=== PATIENT | female | born 1955 | race Caucasian/White ===

== ENCOUNTER 2023-03-27 10:30 | Outpatient (REF) | payer MEDICARE, BC, SELFPAY ==
[2023-03-27 12:54] LABS: Mononuclear WBC Body Fluid* 83 %; Polynuclear WBC Body Fluid* 17 %; RBC, Body Fluid* 2000 Cells/uL; WBC, Body Fluid* 345 Cells/uL
[2023-03-27 12:57] LABS: BF Color Xanthochromic; BF Total Volume* 10
[2023-03-27 12:58] LABS: BF Clarity* Slightly Cloudy
== END 2023-03-27 10:31 | disposition home or self-care (01) ==
LOC: NPINS 10:30
PROVIDERS: PCP Family Medicine; Visit Provider Orthopaedic Surgery Sports Medicine
DX: M25.462 Effusion, left knee (principal)
CPT/HCPCS: 87070; 87075; 87205; 89051; 89060

== ENCOUNTER 2024-10-24 22:32 | Emergency (ER) | payer MEDICARE, BC, SELFPAY ==
--- OUTSIDE RECORDS SUMMARY | 2024-10-24 22:34 | XMS_ITS | Clinical Summary ---
Author Organization [employer] [facility] Address [address] [place] [address] Care Team Providers Care Catering Chef Name Role Phone Yuli Tahira Odell DO Primary Care Provider [phone] Allergies Active Allergy Reactions Criticality Noted Date Comments Amlodipine Anxiety 03/31/2019 Latex 03/14/2005 AVOIDS DUE TO SPINAL BIFIDA Ampicillin-Sulbactam Rash 10/04/2015 Medications MEDICATION ORDER jerri Patel is 742.59 2 0 10/18/19 08 Active vitamin B complex (VITAMIN B COMPLEX) tablet Take 1 tablet by mouth once daily. 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 Please send to [facility] 1 Each 09/26/19 19 Active cholecalcifero l (VITAMIN D) 1,000 unit tablet Take 4-6 tablets by mouth once daily. 0 05/20/19 21 Active vit A/vit C/vit E/zinc/copper (PRESERVISION AREDS ORAL) Take by mouth. Act monalisa medication order composerIndica tions:History of spina bifida Incentive Spirometer for home use. 1 Each 08/02/19 25 Active chlorthalidone 25 mg tabletIndicati ons:Hypertensi on, unspecified type Take 1 Tablet (25 mg) by mouth once daily. 90 Tablet 3 08/02/19 25 Active cyanocobalamin (Vitamin B-12) 1,000 mcg tabletIndicati ons:Vitamin B12 deficiency Take 1 Tablet (1,000 mcg) by mouth once daily. 90 Tablet 3 08/02/19 25 Active losartan 50 mg tabletIndicati ons:Hypertensi on, unspecified type Take 1 Tablet (50 mg) by mouth once daily. 90 Tablet 3 08/02/19 25 Active metoprolol succinate 50 mg sustained-rele ase tabletIndicati ons:Hypertensi on, unspecified type,SVT (supraventricu lar tachycardia) (HC) Take 1 Tablet (50 mg) by mouth once daily. 90 Tablet 3 08/02/19 25 Active clonazePAM 0.5 mg tabletIndicati ons:Congenital anomaly of spinal cord (HC) TAKE 1 TABLET BY MOUTH AT BEDTIME. MAY OCCASIONALLY TAKE 1 EXTRA TABLET PER DAY IF NEEDED. SHOULD LAST 90 DAYS MINIMUM. 100 Tablet 2 10/10/19 25 Active clonazePAM (KLONOPIN) 0.5 mg tabletIndicati ons:Congenital anomaly of spinal cord (HC) TAKE 1 TABLET BY MOUTH AT BEDTIME. MAY OCCASIONALLY TAKE 1 EXTRA TABLET PER DAY IF NEEDED. SHOULD LAST 90 DAYS MINIMUM. 100 Tablet 07/04/19 25 025 Discontinued Active Problems Problem Noted Date Diagnosed Date History of breast cancer 09/28/2021 Supraventricular tachycardia 10/04/2015 Overview (10/04/2015): Admitted [facility] 09/2015. See d/c summary. 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 Disturbance of skin sensation 03/14/2005 Resolved Problems Problem Noted Date Diagnosed Date Resolved Date Other and Unspecified Ovarian Cyst 11/22/2007 01/05/2012 Overview (01/26/2009): Left Ovarian cyst [facility] Malignant neoplasm of 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 09/28/2021 Overview (11/22/2007): right breast cancer, 2003, Encounters Date Type Department Care Team Description 10/09/2024 Refill [facility] [address] [place] [address] Tahira Roldan DO Refill Request (Clonazepam) 09/24/2024 1:30 PM CDT Orders Only [facility] [place] [address] Lab, [place] [facility] 09/24/2024 Travel 08/04/2024 Telephone [facility] [address] [place] [address] Tahira Roldan DO Referral (DX review) 08/01/2024 2:20 PM CDT Office Visit [facility] [place] [address] Tahira Roldan DO Medicare ANNUAL (subsequent) Visit (68 year old medicare) 08/01/2024 Travel from Last 3 Months Immunizations Immunization Administration Dates Next Due COVID-19 vaccine (Moderna 100mcg/0.5mL) ANJELICA PARR 03/29/2021,06/13/2020,05/16/2020 Influenza A (H1N1), Inactivated 04/07/2009 Influenza A (H1N1), Inactiva jenny (Age >=3 Years) 04/07/2009 Influenza, IIV3 (Age >=3 years) 01/05/20 12,05/09/2010,03/27/2006,2003 Td (Age >=7 Years) 11/06/2003 Td, Preservative Free (age > = 7 Years) 08/15/2022 Tdap 01/05/2012 Family History Medical History Relation Name Comments Heart Disease Father Cancer-breast Other pat first cous in 60's yrs old Cancer-colon Other maternal great grandmother Cancer-ovarian Paternal Grandmother 80's yrs old Cancer No Family History Cancer-prostate No Family History Relation Name Status Comments Father Alive Other Paternal Grandmother Social History Tobacco Use Types Packs/Day Years Used Date Smoking Tobacco: Never Smokeless Tobacco: Never Tobacco Cessation:Counseling Given: Yes Alcohol Use Standard Drinks/Week Comments Yes 5 (1 standard drink = 0.6 oz pur e alcohol) PHQ-2 Answer Date Recorded PHQ-2 TOTAL SCORE 0 08/01/2024 Social Connections Answer Date Recorded Do you often feel lonely or isolated from those around you? 0 08/01/2024 Alcohol Use Answer Date Recorded How often do you have a drink containing alcohol ? 4 08/15/2023 How many drinks containing a lcohol do you have on a typical day when you are drinking? 0 08/15/2023 How often do you have five or more drinks on one occasion? 0 08/15/2023 Financial Resource Strain Answer Date R ecorded Difficulty of Paying Living Expenses 3 08/01/2024 Difficulty of Paying Living Expenses Not on file 08/01/2024 Food Insecurity Answer Date Recorded Do you worry your food will run out before you are able to buy more? 1 08/01/2024 Transportation Needs Answer Date Record ed Does lack of transportation keep you from medica l appointments? 1 08/01/2024 Does lack of transportation keep you from work, meetings or getting things that you need? 1 08/01/2024 Housing Stability Answer Date Recorded What is your housing situation today? 1 08/01/2024 Utilities Answer Date Recorded Do you have trouble paying f or utilities (for example, heat, electricity, water, phone)? 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 Not on file Not on file Obstetrics History Para Term AB IAB SAB Ectopic Multiple Livin g Live Births 0 0 0 0 0 0 0 0 0 0 Last Filed Vital Signs Vital Sign Reading Time Taken Comments Blood Pressure 138/78 08/01/2024 2:27 PM CDT Pulse 77 08/01/2024 2:27 PM CDT Temperature 36.3 C (97.4 F) 04/12/2023 3:07 PM BENCH PRESS OPERATOR Respiratory Rate 18 10/19/2021 2:02 PM CDT Oxygen Saturation 96% 08/01/2024 2:27 PM CDT Inhaled Oxygen Concentration - - Weight 59.4 kg (131 lb) 08/01/2024 2:27 PM CDT Height 147 cm (4' 9.87) 12/15/2016 1:46 PM CDT Body Mass Index 27.5 12/15/2016 1:46 PM CDT Plan of Treatment Upcoming Encounters Date Type Department Care Team (Late st Contact Info) Description 11/11/2024 10:45 AM CDT Office Visit [facility] [address] [place] [address] Gerald Otero MD [address] [place] [address] Health Maintenance Due Date Last Done Comments Pneumococcal series for age 50+ (1 of 2 - PCV) 1976 Zoster (shingles) series for age 50+ (1 of 2) 09/16/2007 Mammogram for age 45-75 04/08/2021 04/08/20 20, 10/01/2014, 10/01/2012, Additional history exists DEXA/DXA scan for age 65+ 2022 11/14/2013, 12/2008 COVID-19 vaccine series ( season) 2023 02/24/2022, 03/29/2021, 06/13/2020, Additional history exists Influenza Vaccine (#1) 2024 2, 05/09/2010, 03/27/2006, Additional history exists Medicare Wellness for age 65+ 08/02/2025 08/01/2024, 03/01/2023 Depression screening for age 12+ 08/04/2025 08/04/2024, 08/01/2024, 03/01/2023, Additional history exists Lipids for age 45-75 09/24/2029 09/24/2024, 03/01/2023, 10/17/2021, Additional history exists Tetanus booster 08/15/2032 08/15/2022, 12/22, 09/26/2010 (Completed outside of [facility]), Additional history exists RSV vaccine for adults or (1 - 1-dose 75+ series) 2032 Hepatitis C screening for age 18-79 Completed 11/14/2013 Hepatitis B series for 19+ Aged Out N o longer eligible based on patient's age to complete this topic Procedures Procedure Name Priority Date/Time Associated Diagnosis Comments BASIC METABOLIC PANEL Routine 09/24/2024 1:35 PM CDT Neurogenic bladder HTN (hypertension) HEMOGLOBIN A1C Routine 09/24/2024 1:35 PM CDT Elevated glucose LIPID PANEL W REFLEX MEASURED LDL Routine 09/24/2024 1:35 PM CDT Hyperlipidemia, unspecified hyperlipidemia type VITAMIN B12 Routine 09/24/2024 1:35 PM CDT Vitamin B12 deficiency VITAMIN D 25 (DEFICIENCY) Routine 09/24/2024 1:35 PM CDT Vitamin D deficiency XR MAMMO JAMIN BILAT SCREEN Routine 04/08/2020 11:30 AM BENCH PRESS OPERATOR Visit for screening mammogram XR DXA BONE DENSITY 1 SITE AXIAL AND 1 SITE PERIPHERAL Routine 11/14/2013 12:47 PM CDT Osteoporosis ANTI HCV Routine 11/14/2013 10:36 AM CDT Need for hepatitis C screening test from Last 3 Months or Most Recently Relevant to Health Maintenance Results * (ABNORMAL) HEMOGLOBIN A1C (09/24/2024 1:35 PM CDT) HEMOGLOBIN A1C 5.7(H) <5.7 % [facility] Comment: For someone without known diabetes, a hemoglobin A1c value between 5.7% and 6.4% is consistent with prediabetes and should be confirmed with a follow-up test. For someone with known diabetes, a value <7% indicates that their diabetes is well controlled. A1c targets should be individualized based on duration of diabetes, age, comorbid conditions, and other considerations. This assay result is consistent with an increased risk of diabetes. Currently, no consensus exists regarding use of hemoglobin A1c for diagnosis of diabetes for children. Blood BLOOD SPECIMEN / Unknown 09/24/2024 1:35 PM CDT 09/24/2024 1:36 PM CDT Tahira Roldan DO CHEMISTRY Final Resu lt [employer] [facility] [address] [place] [address], [facility] [address] [place] [address] * (ABNORMAL) LIPID PANEL W REFLEX MEASURED LDL (09/24/2024 1:35 PM CDT) [facility] CHOLESTEROL, TOTAL 226(H) <200 mg/dL [facility] HDL CHOLESTEROL 71 > OR = 50 mg/dL [facility] TRIGLYCERIDES 134 <150 mg/dL [facility] LDL-CHOLESTEROL 130(H) mg/dL (calc) [facility] Comment: Reference range: <100 Desirable range <100 mg/dL for primary prevention; <70 mg/dL for patients with CHD or diabetic patients with > or = 2 CHD risk factors. LDL-C is now calculated using the Shahram-Bart calculation, which is a validated novel method providing better accuracy than the Friedewald equation in the estimation of LDL-C. Shahram TOMLINSON et al. CHINO. 2013;310(19): 3997-5502 (http://education.[employer]/faq/UER496) CHOL/HDLC RATIO 3.2 <5.0 (calc) [facility] NON HDL CHOLESTEROL 155(H) <130 mg/dL (calc) [facility] Comment: For patients with diabetes plus 1 major ASCVD risk factor, treating to a non-HDL-C goal of <100 mg/dL (LDL-C of <70 mg/dL) is considered a therapeutic option. Blood BLOOD SPECIMEN / Unknown 09/24/2024 1:35 PM CDT 09/24/2024 1:36 PM CDT Tahira Roldan DO CHEMISTRY Final Resu lt Performing Organization Address [facility]/ZIP Co de Phone Number [facility] [employer] [facility] [address] [place] [address], [facility] [address] [facility] [place] [place] [address] * VITAMIN D 25 (DEFICIENCY) (09/24/2024 1:35 PM CDT) Pathologist [facility] VITAMIN D,25-OH,TOTAL,IA 36 30 - 100 ng/mL [facility] Comment: Vitamin D Status 25-OH Vitamin D: Deficiency: <20 ng/mL Insufficiency: 20 - 29 ng/mL Optimal: > or = 30 ng/mL For 25-OH Vitamin D testing on patients on D2-supplementation and patients for whom quantitation of D2 and D3 fractions is required, the Quest[facility]ure[facility](TM) 25-OH VIT D, (D2,D3), LC/MS/MS is recommended: order code 23869 (patients >2yrs). See Note 1 Note 1 For additional information, please refer to http://education.AudioBeta/faq/ZNM134 (This link is being provided for informational/ educational purposes only.) Blood BLOOD SPECIMEN / Unknown 09/24/2024 1:35 PM CDT 09/24/2024 1:36 PM CDT Tahira Roldan DO SEND OUTS Final Resu lt Performing Organization Address City/[facility]/ZIP Co de Phone Number [facility] [employer] [facility] [address] [place] [address], [place] [phone] [facility] [address] [facility] [place] [place] [address] * VITAMIN B12 (09/24/2024 1:35 PM CDT) Pathologist [facility] VITAMIN B12 444 200 - 1,100 pg/mL [facility] Blood BLOOD SPECIMEN / Unknown 09/24/2024 1:35 PM CDT 09/24/2024 1:36 PM CDT Tahira Roldan DO CHEMISTRY Final Resu lt [facility] [employer] [facility] [address] [place] [address], [facility] [address] [place] [address] * (ABNORMAL) BASIC METABOLIC PANEL (09/24/2024 1:35 PM CDT) Pathologist [facility] GLUCOSE 110(H) 65 - 99 mg/dL [facility] Comment: Fasting reference interval For someone without known diabetes, a glucose value between 100 and 125 mg/dL is consistent with prediabetes and should be confirmed with a follow-up test. UREA NITROGEN (BUN) 15 7 - 25 mg/dL [facility] CREATININE 0.51 0.50 - 1.05 mg/dL [facility] EGFR 102 > OR = 60 mL/min/1. 73m2 [facility] BUN/CREATININE RATIO SEE NOTE: 6 - 22 (calc) [facility] Comment: Not Reported: BUN and Creatinine are within reference range. SODIUM 139 135 - 146 mmol/L [facility] POTASSIUM 3.5 3.5 - 5.3 mmol/L [facility] CHLORIDE 100 98 - 110 mmol/L [facility] CARBON DIOXIDE 27 20 - 32 mmol/L [facility] ELECTROLYTE BALANCE 12 7 - 17 mmol/L (calc) [facility] CALCIUM 9.8 8.6 - 10.4 mg/dL [facility] Blood BLOOD SPECIMEN / Unknown 09/24/2024 1:35 PM CDT 09/24/2024 1:36 PM CDT Tahira Roldan DO CHEMISTRY Final Resu lt [facility] [address] [place] [address], [place] [phone] [facility] [address] [place] [address] * XR MAMMO JAMIN BILAT SCREEN (04/08/2020 11:30 AM BENCH PRESS OPERATOR) Anatomical Region Laterality Modality BREASTS, Breast Left, Breast Right Bilateral Mammography Impressions 04/08/2020 2:32 PM BENCH PRESS OPERATOR There is no radiographic evidence for malignancy. Recommend annual mammograms. A lay language report of this examination will be provided to the patient. MAMMOGRAM ASSESSMENT: ACR 2 Benign Narrative 04/08/2020 2:32 PM BENCH PRESS OPERATOR XR MAMMO JAMIN BILAT SCREEN [[id number]] CLINICAL HISTORY: This is an asymptomatic 64 y.o. patient. INDICATION FOR EXAM: Mammogram Screening. TECHNIQUE: CC & MLO views were obtained. This digital study was evaluated with the assistance of Computer-Aided Detection. Breast Tomosynthesis was used in interpretation. COMPARISON FILMS: Yes 10/01/14 [facility] FINDINGS: The breasts are extremely dense, which lowers the sensitivity of mammography. No suspicious masses or microcalcifications. Benign appearing calcifications within both breasts, Post surgical changes within right breast and Post treatment changes within right breast. Tahira Roldan MAMMO Final Resu lt * (ABNORMAL) XR DXA BONE DENSITY 1 SITE AXIAL AND 1 SITE PERIPHERAL (11/14/2013 12:47 PM CDT) Anatomical Region Laterality Modality LUMBAR SPINE Other Narrative 11/14/2013 4:55 PM CDT Please see scanned document for results of this study. Procedure Note Urmila Lind E - 11/14/2013 Please see scanned document for results of this study. Roseanna Chang DEXA Final R esult * ANTI HCV [[id number]] (11/14/2013 10:36 AM CDT) HEPATITIS C ANTIBODY Non-Reacti ve Non-Reacti ve 11/14/2013 4:39 PM CDT [facility] Blood specimen (specimen) BLOOD SPECIMEN / Unknown Venipuncture / Unknown 11/14/2013 10:36 AM CDT 11/14/2013 10:36 AM CDT Narrative [facility] - 11/14/2013 4:39 PM CDT Antibodies to HCV not detected; does not exclude the possibility of exposure to HCV. Roseanna Chang SEND OUTS Final R esult [facility] [address] [place] [address], from Last 3 Months or Most Recently Relevant to Health Maintenance [place] [address] MEDICARE PB ONLY MEDICARE PART B HB ONLY Advance Directives Documents on File Type Date Recorded Patient Clip Loading Machine Feeder Expl anation Healthcare Directive 10/19/2010 * Full Code (Latest Code Status on File) Date Activated Date Inactivated Comments 10/07/2010 5:33 PM 10/17/2010 6:12 PM * Full Code Date Activated Date Inactivated Comments 10/07/2010 7:40 AM 10/07/2010 5:33 PM * Full Code Date Activated Date Inactivated Comments 10/06/2010 11:16 AM 10/07/2010 7:40 AM Care Teams Catering Chef Relationship Specialty Start Date End Date Tahira Roldan DO [address] [place] [address] PCP - General Family Practice 08/05/15
--- OUTSIDE RECORDS SUMMARY | 2024-10-24 22:34 | XMS_ITS | Data Portability ---
Author Organization [place] [facility] [place] [facility], [facility] Address [address] [place] [address] Assessment No assessment recorded. Plan of Treatment Reminders Order Date Submit Date Provider Last Modified By Organization Details Last Modified Time Details Appointments None recorded . Lab None recorded . Referral None recorded . Procedures None recorded . Surgeries None recorded . Imaging US, kidney 024 11/16/19 aceoneidao [facility], [address] , [place], [address], 10:52:46 Medication Orders None recorded . Patient TargetsNo targets recorded. Patient InstructionsNo instructions recorded. Reason for Referral None Reported. Results Created Date Observation Date Name Description Value Unit Range Abnormal Flag Note LastModifiedBy Organization Detail LastModifiedTime 11/08/19 24 11/07/2023 clotilde DELGADO No observ ation record ed. [place] Brea [facility] [address] , [place], [address], 11/12/2023 14:55:25 11/14/19 24 11/07/2023 clotilde DELGADO No observ ation record ed. [email or web address] [facility] [address], [place], [address], 11/14/2023 14:16:03 Result Notes None recorded. Procedures Surgical History Date Name Laterality Status Provider Name and Address Organization Details Recorded Time 10/08/19 11 Revise ureter completed Not Available [facility] 2019 17:31:32 07/27/19 11 Insert bladder catheter completed Not Available [facility] 10/02/2019 17:31:32 01/06/20 11 Insert bladder catheter completed Not Available [facility] 10/02/2019 17:31:32 10/29/19 10 Too venous bld venipuncture completed Not Available [facility] 10/02/2019 17:31:32 10/21/18 85 Remove kidney open completed Not Available [facility] 10/02/2019 17:31:32 Ileostomy/jejuno stomy completed Not Available [facility] 10/02/2019 17:31:32 Remove spine lamina 1/2 lmbr completed Not Available [facility] 10/02/2019 17:31:32 Remove bladder/revise tract completed Not Available [facility] 10/02/2019 17:31:32 Imaging Results None recorded. Procedure Notes None recorded. Medical Equipment None Reported. Allergies Allergen ID Allergen Name Allergen Category Reaction Reaction Severity Criticality Documentation Date Start Date Code Code System Note Provider Name and Address Organization Details Recorded Time 420169 latex environme nt,medica tion Not available Not available Not available 10/01/2019 87390 91 RxNorm preca ution s Not Available [facility] 0 23:58:49 445062 diphenhyd ramine hydrochlo ride medicatio n Not available Not available Not available 11/16/2023 1362 RxNorm Aleida odell [facility] 4 15:07:12 356099 lisinopri l medicatio n Not available Not available Not available 11/16/2023 13237 RxNorm Aleida odell [facility] 4 15:07:20 Medications Name Sig Start Date Stop Date Status Note LastModified by Organization Details LastModified Time vitamin b-12 1000 mcg tabs TAKE 1 TABLET (1,000 MCG) BY MOUTH ONCE DAILY. active Not Available Not Available No t Available losartan 50 mg tablet TAKE 1 TABLET (50 MG) BY MOUTH ONCE DAILY. active Not Available Not Available No t Available ofloxacin 0.3 % eye drops INSTILL 1 DROP IN SURGICAL EYE/S FOUR TIMES A DAY; START 2 DAYS PRIOR TO SURGERY AND CONTINUE DIRECTED 11/15 completed Not Available Not Available Not Available metoprolol succinate ER 50 mg tablet,exte nded release 24 hr TAKE 1 TABLET (50 MG) BY MOUTH ONCE DAILY. active Not Available Not Available No t Available clonazepam 0.5 mg tablet TAKE 1 TABLET (0.5 MG) BY MOUTH AT BEDTIME. AUGUST OCCASIONA LLY TAKE 1 EXTRA A DAY IF NEEDED (SHOULD LAST 90 DAYS A MINIMUM) active Not Available Not Available No t Available chlorthalid one 25 mg tablet TAKE 1 TABLET (25 MG) BY MOUTH ONCE DAILY. active Not Available Not Available No t Available ketorolac 0.5 % eye drops INSTILL 1 DROP IN SURGICAL EYE/S TWICE A DAY; START 2 DAYS PRIOR TO SURGERY OF OPERATIVE EYE, CONTINUE DIRECTED 11/15 completed Not Available Not Available Not Available prednisolon e acetate 1 % eye drops,suspe nsion INSTILL 1 DROP IN SURGICAL EYE/S FOUR TIMES A DAY; START 2 DAYS PRIOR TO SURGERY, CONTINUE DIRECTED 11/15 completed Not Available Not Available Not Available losartan 100 mg tablet TAKE 1 TABLET (100MG) BY MOUTH ONCE DAILY. 11/15 completed Not Available Not Available Not Available Vitals Date Recorded Body height Body mass index (BMI) Body weight Provider Name and Address Organization Details Last Updated DateTime 11/16/2023 152.4 cm 22.5 kg/m2 50468.12 g [place] [facility] [place] [facility] 11/16/2023 15:06:13 Social History Question Answer Notes LastModified by Organizat ion Details LastModified Time Tobacco Smoking Status Never Smoker Not Available [facility] 10/02/2019 03:06:10 What Is Your Level Of Caffeine Consumption? Moderate [email or web address] Information not available 11/16/2023 Race White Information n ot available 10/02/2019 Ethnicity Not /Latin o [email or web address] Information not available 11/16/2023 Preferred Language Australian [email or web address] Information not available 11/16/2023 Marital Status Informati on not available 10/02/2019 What Was The Date Of Your Most Recent Tobacco Screening? 11/16/2023 [email or web address] Information not available 11/16/2023 Sex: Unknown Functional Status Question Answer Note LastModified by Organization D etails LastModified Time What is your level of alcohol consumption? Moderate [email or web address] Information not available 11/16/2023 Mental Status None recorded. Family History Nothing Reported Notes:Heart disease:Father Cancer, colon:Grandmother Melanoma :Grandfather Cancer, ovarian:Grandmother Cancer, kidney:Grandfather Hypertension:Father Medical History No medical history recorded. Gynecological HistoryNo gynecological history recorded. Obstetrics History GPAL:G 0 P 0 0 0 0 Immunizations Vaccine Type Date Status Note Provider Nam e and Address Organization Details Recorded Time COVID-19, mRNA, LNP-S, PF, 100 mcg/0.5mL dose or 50 mcg/0.25mL dose 1 completed Aleida odell [facility] 11/16/2023 15:06:23 COVID-19, mRNA, LNP-S, PF, 100 mcg/0.5mL dose or 50 mcg/0.25mL dose 1 completed Aleida odell [facility] 11/16/2023 15:06:23 COVID-19, mRNA, LNP-S, PF, 100 mcg/0.5mL dose or 50 mcg/0.25mL dose 1 completed Aleida odell [facility] 11/16/2023 15:06:23 COVID-19, mRNA, LNP-S, bivalent, PF, 50 mcg/0.5 mL or 25mcg/0.25 mL dose 2 completed Aleida odell [facility] 11/16/2023 15:06:23 Tdap 2 completed Aleida odell [facility] 11/16/2023 15:06:23 Novel [id number], [facility] 15:06:23 Influenza, split virus, trivalent, preservative 1 completed Aleida odell [facility] 11/16/2023 15:06:23 Influenza, split virus, trivalent, preservative 2 completed Aleida odell [facility] 11/16/2023 15:06:23 Influenza, split virus, trivalent, preservative 4 completed Aleida odell [facility] 11/16/2023 15:06:23 Influenza, split virus, trivalent, preservative 6 completed Aleida odell, [facility] 11/16/2023 15:06:23 Td (adult), 5 Lf tetanus toxoid, preservative free, adsorbed 3 completed Aleida odell, [facility] 11/16/2023 15:06:23 Td (adult), 2 Lf tetanus toxoid, preservative free, adsorbed 4 completed Aleida odell, [facility] 11/16/2023 15:06:23 Past Encounters Encounter ID Performer Location Encounter Start Date Encounter Closed Date Diagnosis/Indication Diagnosis SNOMED-CT Code Diagnosis ICD10 Code Diagnosis Note [id number] ELLEN RIZVI_Az[facility] [address] [place] [address] 11/16/2023 14:26:43 11/23/2023 10:51:46 Neurogenic dysfunction of urinary bladder 867668473 N31.9 S/p ileal conduit 1965 with revision in 2010 Hydronephrosis 70795020 N13.30 Persistent trace/mild right hydronephr osis of solitary kidney on ultrasound since at least 2015Renal function remains normal indicating no obstructio n of solitary kidneyYear ly [place] Health Concerns Section Related Observation LastModified by Organization Detai ls LastModified Time None Recorded Concern Status LastModified by Organization Details LastModified Time None Recorded Advance Directives Directive None Recorded Payers Insurance Date Sequence Insurance Name Policy Number Policy Way Covered Member ID Way Member ID Guarantor Name 11/23/2023 1 [place] [employer] Alix Simpson Faillettaz [id number] Alix Simpson Faillettaz 11/23/2023 2 [place] [id number] Alix Simpson Faillettaz [id number] Alix Simpson Faillettaz 11/23/2023 1 [place] [id number] Alix Faillettjess [id number] Alix Pardo Notes Date Note Type Note Provider Name and Address Organization Details Recorded Time 11/16/2023 text/html 68 yo F who has previously followed with Dr Freire in [place] presents for evaluation of neurogenic bladder, kidney stones. History of spina bifida resulting in neurogenic bladder, s/p urinary diversion with ileal conduit (Dr. Curtis Pack) in 1963. Revision in 2010. Also with h/o solitary kidney after undergoing nephrectomy in [address]. Last seen by Dr Freire in 2021 for non-obstructing renal stone and hydronephrosis. Renal US in 2015 and 2021 with mild right hydronephrosis.R enal US 11/07/23 reviewed today, showing mild right hydronephrosis, no stones or renal masses. Cr in July 2023 stable at 0.6. Does report chronic right back pain, unchanged. No recent UTIs. Working to improve hydration. Some concerns about skin growing around the stoma edges. GLADYS LIGHT PA-C [id number], [place], [address], [facility] 11/16/2023 17:29:33 OBGyn Episode No OBEpisode recorded.
[2024-10-24 22:42] VITALS: BP 150/90; PULSE 84; RESP 18; TEMP 36.4; O2SAT 94; BMI 26.6
--- NOTE | 2024-10-24 23:39 | ED.GENADULT ---
HPI - General Adult General Date Seen: 10/24/24 Chief complaint: Abdominal Pain Stated complaint: abdominal pain Time Seen by Provider: 10/24/24 23:39 History of Present Illness HPI narrative: 69-year-old female with a complex past history presents to the ER today for abdominal pain across both upper quadrants of her abdomen, nausea, and nonbloody, nonbilious emesis. She has a complex past history including spina bifida, neurogenic bladder, history of less ureteral surgery and ultimate left nephrectomy years ago. She initially led me to believe that she had a diverting ileostomy placed but does not true she had an ileal conduit diverting her bladderplaced in the 1960s. She has had a hysterectomy oophorectomy. She has not had cholecystectomy or appendectomy to her knowledge. She has also had multiple spine surgeries and orthopedic surgeries. She recalls that she was hospitalized he required placement of an NG tube for 11 days back in 2010. It sounds like that may have been due to a bowel obstruction. She does get episodes of pain that happen from time to time. She had 1 of those episodes of pain that began this afternoon about 3:00 a.m.. She denied a large salad with pharm food prior to that. No greasy or fatty food. Today's episode of pain is different than her normal pattern because it is persistent longer and is associated with nausea and actual emesis. She did feel chilled at home and had an elevated heart rate but has not had a fever. She is not having any diarrhea. In fact she is noticing less output than normal through her ileostomy. When asked about her kidney function she says that is been good but her most recent creatinine level was 6.5. ?. She has never had dialysis so I wonder if this might be a miss recollection. She asked me to check her [place] chart. Per records from [facility] past medical history includes Lipoma of spinal cord Neurogenic bladder with ileal diversion She has a history of breast cancer, History of neurogenic bowel Rectal prolapse Osteoporosis Left nephrectomy Scoliosis, spine surgeries and Trevino rods She had a BMP on 09/24. BUN was 15 and creatinine was 0.51. Sodium 139, potassium 3.5, chloride 100, bicarb 27, calcium 9.8 Related Data Home Medications ?Medication ?Instructions ?Recorded ?Confirmed chlorthalidone 25 mg tablet 25 mg PO DAILY 12/05/23 12/05/23 clonazepam 0.5 mg tablet mg PO 03/27/23 03/27/23 cyanocobalamin (vitamin B-12) 1,000 mcg PO QDAY 03/27/23 03/27/23 1,000 mcg tablet (Vitamin B-12) losartan 100 mg tablet 50 mg PO DAILY 03/27/23 03/27/23 metoprolol succinate 50 mg 50 mg PO DAILY 03/27/23 03/27/23 tablet,extended release 24 hr mv-mn-folic 200 mcg-vit K 15 cap PO 03/27/23 03/27/23 mcg-lutein 5 mg-zeaxanthin 1 mg capsule (PreserVision AREDS 2 Plus Multivit) Allergies Allergy/AdvReac Type Severity Reaction Status Date / Time ampicillin Allergy Mild Rash Verified 10/25/24 00:49 sulbactam Allergy Mild Rash Verified 10/25/24 00:49 latex AdvReac Unknown Verified 10/25/24 00:49 [facility] Medical History (Updated 10/25/24 @ 01:40 by Curtis Bay MD) Arrhythmia ?I49.9 - Cardiac arrhythmia, unspecified (ICD-10) Breast cancer ?C50.919 - Malignant neoplasm of unspecified site of unspecified female breast (ICD-10) Constipation ?K59.00 - Constipation, unspecified (ICD-10) Abdominal pain ?R10.9 - Unspecified abdominal pain (ICD-10) Surgical History (Updated 03/27/23 @ 09:49 by Leandra Schmitt ~ [facility]) H/O unilateral oophorectomy ?Z90.721 - Acquired absence of ovaries, unilateral (ICD-10) History of lumpectomy of right breast ?Z98.890 - Other specified postprocedural states (ICD-10) History of ankle fusion ?Z98.1 - Arthrodesis status (ICD-10) History of back surgery ?Z98.890 - Other specified postprocedural states (ICD-10) History of phacoemulsification of cataract of right eye with intraocular lens implantation (06/04/19) ?Z98.41 - Cataract extraction status, right eye (ICD-10) ?Z96.1 - Presence of intraocular lens (ICD-10) Social History (Updated 03/27/23 @ 09:50 by Leandra Schmitt ~ [facility]) Smoking Status: Never smoker Do you use any of these nicotine containing products: None Second hand tobacco smoke exposure: No Exam Narrative: Exam Narrative: Constitutional: Appears well-developed and well-nourished. Alert. Conversant but somewhat vague historian.. Non toxic. HENT: Head: Atraumatic. Nose: Nose normal. Mouth/Throat: Oral mucosa is clear and moist. no trismus. Pharynx normal. Tonsils symmetric. No tonsillar enlargement, erythema, or exudate. Eyes: Conjunctivae normal. EOM normal. Pupils equal, round, and reactive to light. No scleral icterus. Neck: Normal range of motion. Neck supple. No tracheal deviation present. Cardiovascular: Normal rate, regular rhythm. No gallop. No friction rub. No murmur heard. Symmetric radial artery pulses Pulmonary/Chest: Effort normal. No stridor. No respiratory distress. No wheezes. No rales. No rhonchi . No tenderness. Abdominal: Soft. Bowel sounds normal. Multiple healed scars. No distension, but she is quite firm in the epigastrium No mass. No tenderness. No rebound. No guarding. Bladder ostomy in lower abdomen. Ostomy/bladder drainage bag is essentially empty. Musculoskeletal: RUE: Normal range of motion. No tenderness. No deformity LUE: Normal range of motion. No tenderness. No deformity RLE: Normal range of motion. No edema. No tenderness. No deformity LLE: Normal range of motion. No edema. No tenderness. No deformity Lymph: No cervical adenopathy. Neurological: Alert and oriented to person, place, and time. Normal strength. CN II-VII intact. No sensory deficit. GCS eye subscore is 4. GCS verbal subscore is 5. GCS motor subscore is 6. Normal coordination Skin: Skin is warm and dry. No rash noted. No pallor. Normal capillary refill. Psychiatric: Normal mood. Normal affect. Const: Vital Signs, click to edit/add: Vital Signs - 24 hr 10/24/24 22:42 10/25/24 03:04 Temperature 97.6 F Pulse Rate [Right Pulse Oximeter] 84 106 H Respiratory Rate 18 16 Blood Pressure [Le ft Upper Arm] 150/90 H 164/92 H Pulse Oximetry 94 95 Oxygen Delivery Me thod Room Air Room Air Course Vital Signs Vital signs: Initial Vital Signs Temperature 97.6 F 10/24/24 22:42 Temperature Source Temporal Artery Scan 10/24/24 22:42 Pulse Rate 84 10/24/24 22:42 Pulse Rhythm Regular 10/24/24 22:42 Pulse Strength 3+ Normal 10/24/24 22:42 Respiratory Rate 18 10/24/24 22:42 Blood Pressure 150/90 H 10/24/24 22:42 Blood Pressure Mean 110 H 10/24/24 22:42 Blood Pressure Position Sitting 10/24/24 22:42 Pulse Oximetry 94 10/24/24 22:42 Oxygen Delivery Method Room Air 10/24/24 22:42 Vital Signs Temperature 97.6 F 10/24/24 22:42 Pulse Rate 84 10/24/24 22:42 Respiratory Rate 18 10/24/24 22:42 Blood Pressure 150/90 H 10/24/24 22:42 Pulse Oximetry 94 10/24/24 22:42 Oxygen Delivery Method Room Air 10/24/24 22:42 Temperature 97.6 F 10/24/24 22:42 Pulse Rate 106 H 10/25/24 03:04 Respiratory Rate 16 10/25/24 03:04 Blood Pressure 164/92 H 10/25/24 03:04 Pulse Oximetry 95 10/25/24 03:04 Oxygen Delivery Method Room Air 10/25/24 03:04 Medications Administered Medications: Discontinued Medications Generic Name Dose Route Start Last Admin Trade Name Freq PRN Reason Stop Dose Admin Sodium Chloride 1,000 mls @ 1,000 mls/hr 10/24/24 23:45 10/25/24 01:01 0.9 % Sodium Chloride 1000 Ml IV 10/25/24 00:44 Infused .Q1H KESHA Infusion Lactated Ringer's 1,000 mls @ 125 mls/hr 10/25/24 01:55 10/25/24 02:06 Lactated Ringers 1000 Ml IV 125 mls/hr .Q8H KESHA Administration Ketorolac Tromethamine 15 mg 10/24/24 23:40 10/24/24 23:59 Ketorolac 15 Mg/Ml Inj IVP 10/24/24 23:41 15 mg ONCE ONE Administration Ondansetron HCl 4 mg 10/24/24 23:40 10/24/24 23:59 Ondansetron 2 Mg/Ml Inj IVP 10/24/24 23:41 4 mg ONCE ONE Administration Medical Decision Making [facility] Narrative Medical decision making narrative: Very pleasant 69-year-old female with a complex past history including spina bifida, neurogenic bladder, left nephrectomy, bladder surgery with ileal conduit, hysterectomy. She apparently has scar tissue in his had intermittent abdominal pain episodes in the past with at least 1 prior hospitalization for small bowel obstruction that resolved conservatively. She presents to the ER today with generalized abdominal pain mostly in the upper abdomen, bloating, nausea and some nonbilious, nonbloody emesis. Differential for her abdominal pain is broad including small-bowel obstruction, constipation, functional pain, pancreatitis, biliary colic cholecystitis, and choledocholithiasis, peptic ulcer disease, early appendicitis, colitis, diverticulitis, ischemia, among others. Workup here in the ER tonight shows a leukocytosis with a white count of 16.9. Kidney function is. Lactic acid is. LFTs normal saline 0 4 AST mildly elevated at 40. She has mother low sodium of 134 and mildly low potassium at 3.4. CT scan of her abdomen shows signs of small-bowel obstruction. There is a small amount of free pelvic fluid which is probably physiologic but not thought to be representing hemoperitoneum or abscess. No free air. Discussed the patient's presenting symptoms and CT findings with the on-call general surgeon FELICIA Floyd. She reviewed the case with me in detail and recommends transfer because the patient would have a very complex surgical case if she needed an operation. She requests that we place an NG tube, and I ordered placement. Discussed this situation with the patient. She is surprised dismay T her that she has a small-bowel obstruction. At this point there is no clear indication for immediate surgical intervention but our surgeon recommends transfer in case she does need surgery, given her complex surgical history. Reluctantly, the patient agrees to transfer to an outside hospital. She has had surgeries at [facility] in the past. I discussed the case with the hospitalist from [facility], Dr. Castellanos. He accepts the patient in transfer. In terms of NG tube placement, nurses initially placed the tube and it seemed to pass nicely. However only hooked to suction and only drained a small amount of water that patient had swallowed. We obtained a portable chest x-ray and it showed that the tube was present in the esophagus with the tip low in the esophagus probably right the GE junction. It was not draining gastric contents. I had the nurses advanced the nasogastric tube by 10 cm. A 2nd chest x-ray was obtained after advancing the tube and it showed that the tip of the NG tube was still present at the GE junction but more the tube was now seen you asleep bending in the esophagus. It appears that there is some obstruction at the GE junction which prevents us from passing nasogastric tube. We attempted again to adjust the tube, but were unsuccessful in achieving suction of gastric contents. Therefore we discontinued efforts at placing the NG tube. Will likely require placement under x-ray guidance when she arrives at [place]. Lab Data Labs: Lab Results 10/24/24 10/24/24 Range/Units 00:00 00:02 WBC 16.79 H (4.50-11.00) K/uL RBC 4.56 (4.00-5.20) m/uL Hgb 15.1 (12.0-16.0) gm/dL Hct 43.8 (33.0-51.0) % MCV 96 (80-100) fL MCH 33 (26-34) pg MCHC 35 (32-36) gm/dL RDW Coeff of Justin 11.9 (11.5-15.5) % Plt Count 303 (140-440) K/uL Neut % (Auto) 81.2 H (42.0-72.0) % Lymph % (Auto) 11.1 L (20-44) % [place] % (Auto) 7.1 (0.0-11.0) % Eos % (Auto) 0.4 (0.0-7.0) % Baso % (Auto) 0.1 (0.0-3.0) % Neut # (Auto) 13.60 H (1.7-7.0) K/uL Lymph # (Auto) 1.90 (0.90-2.90) K/uL [place] # (Auto) 1.20 H (0.00-0.90) K/UL Eos # (Auto) 0.10 (0.00-0.50) K/uL Baso # (Auto) 0.00 (0.00-0.30) K/uL Abs Immat Gran (auto) 0.00 (0.00-0.30) K/uL Imm/Tot Granulo (auto) 0.1 % Sodium 134 L (135-149) mmol/L Potassium 3.4 L (3.6-5.1) mmol/L Chloride 97 (96-114) mmol/L Carbon Dioxide 27 (20-32) mmol/L Anion Gap 10 (7-15) mEq/L BUN 21 (7-30) mg/dL Creatinine 0.6 (0.5-1.5) mg/dL Estimated Creat Clear 45.16 Estimated GFR 98 ml/min Glucose 139 H (60-115) mg/dL Lactate 1.6 (0.5-1.9) mmol/L Calcium 9.7 (8.4-10.6) mg/dL Total Bilirubin 0.7 (0.1-1.5) mg/dL AST 40 H (12-35) U/L ALT 23 (4-35) U/L Alkaline Phosphatase 64 (40-150) U/L Total Protein 7.5 (6.0-8.3) g/dL Albumin 4.5 (3.3-5.0) g/dL Lipase 73 (23-300) U/L Urine Color Yellow (Yellow) Urine Appearance Clear (Clear) Urine pH 7.0 (5.0-8.5) Ur Specific [place] 1.020 (1.000-1.030) Urine Protein 1+ A (Negative) Urine Glucose (UA) Negative (Negative) Urine Ketones 2+ A (Negative) Urine Blood 3+ A (Negative) Urine Nitrite Positive A (Negative) Urine Bilirubin Negative (Negative) Urine Urobilinogen 0.2 (0.2-1.0) Ur Leukocyte Esterase 1+ A (Negative) Urine RBC QNS Urine WBC QNS Ur Squamous Epith Cells QNS Urine Bacteria QNS Imaging Data CT scan - abdomen: Attestation: I have reviewed the pertinent imaging results. Radiologist's impression: IMPRESSION: 1. Findings compatible with distal small-bowel obstruction with transition point likely located within the lower pelvis. 2. Small volume pelvic ascites. Chest x-ray: Attestation: I have reviewed the pertinent imaging results. My impression: NG tube appears to and in the distal esophagus or perhaps right at the level of the GE junction. I asked the nurses to a dancer N G-tube by 10 cm. Radiologist's impression: IMPRESSION: 1. NG tube is present with the tip in the distal esophagus. Discharge Plan Discharge Clinical Impression: Small bowel obstruction Patient Disposition: Xfer Other Discharge Location: [facility] Activity Level: No Restrictions Discharge Diet: Regular Prescriptions: No Action chlorthalidone 25 mg tablet 25 mg PO DAILY losartan 100 mg tablet 50 mg PO DAILY clonazepam 0.5 mg tablet PO metoprolol succinate 50 mg tablet extended release 24 hr 50 mg PO DAILY cyanocobalamin (vitamin B-12) [Vitamin B-12] 1,000 mcg tablet 1,000 mcg PO QDAY PreserVision AREDS 2 Plus MV 200 mcg-15 mcg- 5 mg-1 mg capsule PO Stand Alone Forms: [employer] Info Instructions
[2024-10-24] MEDS: ONDANSETRON 2 MG/ML inj 4 MG IVP (23:59)
[2024-10-25 00:12] LABS: Hematocrit 43.8 % (33.0-51.0); Hemoglobin* 15.1 gm/dL (12.0-16.0); Immature Granulocytes Pct Auto 0.1 %; Mean Corpuscular HGB Conc 35 gm/dL (32-36); Mean Corpuscular Hemoglobin 33 pg (26-34); Mean Corpuscular Volume 96 fL (80-100); RDW Coefficient of Variation % 11.9 % (11.5-15.5); Red Blood Count 4.56 m/uL (4.00-5.20); White Blood Count* 16.79 K/uL (4.50-11.00)
[2024-10-25 00:14] LABS: Lactate* 1.6 mmol/L (0.5-1.9)
[2024-10-25 00:16] LABS: Appearance Urine Clear (Clear)
[2024-10-25 00:16] LABS: Immature Granulocytes Abs Auto 0.00 K/uL (0.00-0.30); Lymphocytes Absolute Auto 1.90 K/uL (0.90-2.90); Slide Review Reflex No
--- NOTE | 2024-10-25 00:30 | CRLHL7_ITS ---
For Patients: As a result of the Century Cures Act, medical imaging exams and procedure reports are released immediately into your electronic medical record. You may view this report before your referring provider. If you have questions, please contact your health care provider. INDICATION: Abdominal pain and vomiting. TECHNIQUE: CT abdomen and pelvis acquired with 74 cc Isovue 370 IV contrast. COMPARISON: CT abdomen and pelvis 12/17/2020. FINDINGS: Lower chest: Bibasilar atelectasis. Liver: Unremarkable. Gallbladder and bile ducts: Unremarkable. Pancreas: Unremarkable. Spleen: Unremarkable. Adrenal glands: Unremarkable. Kidneys/bladder: Absent left kidney. No right-sided hydronephrosis or hydroureter. Absent bladder. Ileal conduit grossly maintained. GI tract: Multiple loops of dilated fluid-filled small bowel with transition to more collapsed small bowel loops within the lower pelvis, compatible with distal small bowel obstruction. Small hiatal hernia. Vasculature: No abdominal aortic aneurysm. Grossly patent vasculature. Lymph nodes: No suspicious lymphadenopathy. Peritoneum/Abdominal Wall: Small volume pelvic ascites. No pneumoperitoneum. No acute abdominal wall abnormality. Pelvis: No suspicious adnexal mass. Bones: No acute abnormality. Chronic left hip dislocation, similar to prior with associated hip joint effusion and chronic soft tissue thickening. IMPRESSION: 1. Findings compatible with distal small-bowel obstruction with transition point likely located within the lower pelvis. 2. Small volume pelvic ascites. Please note that all CT scans at this facility use dose modulation, iterative reconstruction, and/or weight-based dosing when appropriate to reduce radiation dose to as low as reasonably achievable. Dictated by Chato Olsen MD @ 10/25/2024 1:00:21 AM (Electronically Signed)
[2024-10-25 00:37] LABS: Albumin* 4.5 g/dL (3.3-5.0); Chloride* 97 mmol/L (96-114); Sodium* 134 mmol/L (135-149)
[2024-10-25 00:38] LABS: Potassium* 3.4 mmol/L (3.6-5.1)
[2024-10-25 00:40] LABS: Alanine Aminotransferase* 23 U/L (4-35); Alkaline Phosphatase* 64 U/L (40-150); Anion Gap 10 mEq/L (7-15); Aspartate Amino Transferase* 40 U/L (12-35); Bilirubin Total* 0.7 mg/dL (0.1-1.5); Blood Urea Nitrogen* 21 mg/dL (7-30); Carbon Dioxide* 27 mmol/L (20-32); Creatinine* 0.6 mg/dL (0.5-1.5); Est. Creatinine Clearance* 45.16; Estimated Glomerular Filt Rate 98 ml/min; Total Protein* 7.5 g/dL (6.0-8.3)
[2024-10-25 00:41] LABS: Calcium* 9.7 mg/dL (8.4-10.6); Glucose* 139 mg/dL (60-115)
--- OUTSIDE RECORDS SUMMARY | 2024-10-25 00:55 | XMS_ITS | Clinical Summary ---
Author Organization [facility] Address [address] [place] [id number] Care Team Providers Care Vaccine Manager Name Role Phone Yuli Tahira Odell DO Primary Care Provider [phone] Allergies Active Allergy Reactions Criticality Noted Date [...] 09/28/2021 Supraventricular tachycardia 10/04/2015 Overview (10/04/2015): Admitted [facility] 09/2015. See d/c summary. 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 09/28/2021 Overview (11/22/2007): right breast cancer, 2003, Encounters Date Type Department Care Team Description 10/09/2024 Refill [facility] [address] [place] [address] Tahira Roldan DO Refill Request (Clonazepam) 09/24/2024 1:30 PM CDT Orders Only [facility] [address] [place] [address] Lab, [place] [facility] 09/24/2024 Travel 08/04/2024 Telephone [facility] [place] [address] aThira Roldan DO Referral (DX review) 08/01/2024 2:20 PM CDT Office Visit [facility] [address] [place] [address] Tahira Roldan DO Medicare ANNUAL (subsequent) Visit [...] on file 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 Gender Identity Not on file Sexual Orientation Not on file 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 Not on file Not on file Not on file Obstetrics History Para Term AB IAB SAB Ectopic Multiple Livin g Live Births 0 0 0 0 0 0 0 0 0 0 Last Filed Vital Signs Vital Sign Reading Time Taken Comments Blood Pressure 138/78 08/01/2024 2:27 PM CDT Pulse 77 08/01/2024 2:27 PM CDT Temperature 36.3 C (97.4 F) 04/12/2023 3:07 PM MEAT GRADING MACHINE OPERATOR Respiratory Rate 18 10/19/2021 2:02 PM [...] 11/11/2024 10:45 AM CDT Office Visit [facility] [address] [place] [address] Gerlad Otero MD [address] [place] [address] Health Maintenance Due Date Last [...] 08/15/2032 08/15/2022, 12/22, 09/26/2010 (Completed outside of [facility]), Additional history exists RSV vaccine for adults [...] JAMIN BILAT SCREEN Routine 04/08/2020 11:30 AM MEAT GRADING MACHINE OPERATOR Visit for screening mammogram XR DXA [...] Tahira Roldan DO CHEMISTRY Final Resu lt [facility] [address] [place] [address], [facility] [address] [place] [address] * (ABNORMAL) LIPID PANEL W REFLEX MEASURED LDL (09/24/2024 1:35 PM CDT) [facility] CHOLESTEROL, TOTAL 226(H) <200 mg/dL [facility] HDL CHOLESTEROL 71 > OR = 50 mg/dL [facility] TRIGLYCERIDES 134 <150 mg/dL [facility] LDL-CHOLESTEROL 130(H) mg/dL (calc) [facility] Comment: Reference range: <100 Desirable range <100 mg/dL for primary prevention; <70 mg/dL for patients with CHD or diabetic patients with > or = 2 CHD risk factors. LDL-C is now calculated using the Shahram-Bart calculation, which is a validated novel method providing better accuracy than the Friedewald equation in the estimation of LDL-C. Shahram TOMLINSON et al. CHINO. 2013;310(19): 4454-5711 (http://education.Valchemy.Ecovative Design/faq/NOV535) CHOL/HDLC RATIO 3.2 <5.0 (calc) [facility] NON HDL CHOLESTEROL 155(H) <130 mg/dL (calc) [facility] Comment: For patients with diabetes plus 1 major ASCVD risk factor, treating to a non-HDL-C goal of <100 mg/dL (LDL-C of <70 mg/dL) is considered a therapeutic option. Blood BLOOD SPECIMEN / Unknown 09/24/2024 1:35 PM CDT 09/24/2024 1:36 PM CDT Tahira Roldan DO CHEMISTRY Final Resu lt Performing Organization Address [facility]/ZIP Co de Phone Number [facility] [place] [facility] [address] [facility] [place] [address], [facility] [address] [place] [address] * VITAMIN D 25 (DEFICIENCY) (09/24/2024 1:35 PM CDT) Pathologist [facility] VITAMIN D,25-OH,TOTAL,IA 36 30 - 100 ng/mL [facility] [place] Comment: Vitamin D Status 25-OH Vitamin D: Deficiency: <20 ng/mL Insufficiency: 20 - 29 ng/mL Optimal: > or = 30 ng/mL For 25-OH Vitamin D testing on patients on D2-supplementation and patients for whom quantitation of D2 and D3 fractions is required, the QuestAssureD(TM) 25-OH VIT D, (D2,D3), LC/MS/MS is recommended: order code [id number] (patients >2yrs). See Note 1 Note 1 For additional information, please refer to http://education.K2 Intelligence/faq/MFW185 (This link is being provided for informational/ educational purposes only.) Blood BLOOD SPECIMEN / Unknown 09/24/2024 1:35 PM CDT 09/24/2024 1:36 PM CDT Tahira Roldan DO SEND OUTS Final Resu lt Performing Organization Address City/[facility]/ZIP Co de Phone Number [facility] [place] [facility] [address] [place] [address], [place] [phone] [facility] [address] [place] [address] * VITAMIN B12 (09/24/2024 1:35 PM CDT) Pathologist [facility] VITAMIN B12 444 200 - 1,100 pg/mL [facility] Blood BLOOD SPECIMEN / Unknown 09/24/2024 1:35 PM CDT 09/24/2024 1:36 PM CDT Tahira Roldan DO CHEMISTRY Final Resu lt [facility] [place] [facility] [address] [place] [address], [facility] [address] [place] [address] * (ABNORMAL) BASIC METABOLIC PANEL (09/24/2024 1:35 PM CDT) Pathologist [facility] GLUCOSE 110(H) 65 - 99 mg/dL [facility] [...] Tahira Roldan DO CHEMISTRY Final Resu lt [facility] [address] [place] [address], [place] [phone] [facility] [address] [place] [address] * XR MAMMO JAMIN BILAT SCREEN (04/08/2020 11:30 AM MEAT GRADING MACHINE OPERATOR) Anatomical Region Laterality Modality BREASTS, Breast Left, Breast Right Bilateral Mammography Impressions 04/08/2020 2:32 PM MEAT GRADING MACHINE OPERATOR There is no radiographic evidence for malignancy. Recommend annual mammograms. A lay language report of this examination will be provided to the patient. MAMMOGRAM ASSESSMENT: ACR 2 Benign Narrative 04/08/2020 2:32 PM MEAT GRADING MACHINE OPERATOR XR MAMMO JAMIN BILAT SCREEN [[id number]] CLINICAL HISTORY: This is an asymptomatic 64 [...] DEXA Final R esult * ANTI HCV [[id number]] (11/14/2013 10:36 AM CDT) HEPATITIS C ANTIBODY Non-Reacti ve Non-Reacti ve 11/14/2013 4:39 PM CDT [facility] Blood specimen (specimen) BLOOD SPECIMEN / Unknown Venipuncture / Unknown 11/14/2013 10:36 AM CDT 11/14/2013 10:36 AM CDT Narrative [facility] - 11/14/2013 4:39 PM CDT Antibodies to HCV not detected; does not exclude the possibility of exposure to HCV. Roseanna Chang SEND OUTS Final R esult [facility] 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
--- NOTE | 2024-10-25 01:52 | CRLHL7_ITS ---
For Patients: As a result of the Cures Act, medical imaging exams and procedure reports are released immediately into your electronic medical record. You may view this report before your referring provider. If you have questions, please contact your health care provider. INDICATION: NG placement, small bowel obstruction TECHNIQUE: Chest radiograph 1 view COMPARISON: None FINDINGS: Mediastinum: The mediastinum is normal in appearance. The heart silhouette is normal in size and morphology. Lung: Both lungs are unremarkable in appearance with small lung volumes. No sign of pleural effusion seen. No pneumothorax is identified. Bone and Soft tissue: Posterior and anterior spinal fusion of the lumbar spine is partially visualized. NG tube is present with the tip in the distal esophagus. IMPRESSION: 1. NG tube is present with the tip in the distal esophagus. Dictated by Ramón Rios MD @ 10/25/2024 2:13:32 AM Dictated by: Ramón Rios MD @ 10/25/2024 02:13:36 (Electronically Signed)
[2024-10-25] MEDS: LACTATED RINGERS 1000 ML 1,000 ML 125 ML IV (02:06)
--- NOTE | 2024-10-25 02:55 | CRLHL7_ITS ---
For Patients: As a result of the Cures Act, medical imaging exams and procedure reports are released immediately into your electronic medical record. You may view this report before your referring provider. If you have questions, please contact your health care provider. INDICATION: NG tube placement COMPARISON: Earlier the same day TECHNIQUE: 1 view chest radiograph. FINDINGS: Devices: The NG tube distal tip is at the distal esophagus. The side hole is 8 centimeters above the stomach. Lung volumes are moderate. No focal or diffuse opacities. No pulmonary edema. No pleural effusion. No pneumothorax. No pneumomediastinum. Heart size is normal. Thoracolumbar spinal hardware. Contrast excreted into the right renal collecting system. IMPRESSION: The NG tube needs to be advanced another 8 centimeters. Dictated by Elly Gill MD @ 10/25/2024 4:26:36 AM (Electronically Signed)
[2024-10-25 03:04] VITALS: BP 164/92; PULSE 106; RESP 16; O2SAT 95
== END 2024-10-25 04:08 | disposition other institution (70) ==
PROVIDERS: Emergency Provider Emergency Medicine; PCP Family Medicine
DX: K56.609 Unspecified intestinal obstruction, unspecified as to partial versus complete obstruction (principal)
CPT/HCPCS: 43752; 36415; 71045; 74177; 80053; 81001; 83605; 83690; 85025; 87086; 96374; 96375; 99284; 99285; J1885; J2405; J7030; J7120; Q9967

== ENCOUNTER 2024-10-25 04:06 | Outpatient (CLI) | payer MEDICARE, BC, SELFPAY | END 2024-10-25 04:07 | disposition home or self-care (01) | LOC: AMB 10-27 15:03 | PROVIDERS: PCP Family Medicine; Visit Provider Student in an Organized Health Care Education/Training Program | DX: K56.609 Unspecified intestinal obstruction, unspecified as to partial versus complete obstruction (principal) | CPT/HCPCS: A0425; A0427 ==